=== PATIENT | female | born 1985 | race Caucasian/White ===

== ENCOUNTER 2016-07-30 03:21 | Emergency (ER) | payer MEDICARE, MEDICAID ==
[2016-07-30] MEDS ORDERED: Morphine Sulfate 2 MG/ML SYRINGE ONE (03:57)
[2016-07-30] MEDS ORDERED: Ondansetron HCl/PF 4 MG/2 ML Vial ONE ×2 (03:57→04:52)
[2016-07-30] MEDS ORDERED: diphenhydrAMINE HCl 50 MG/ML 1 ML VIAL ONE (03:58)
[2016-07-30 04:06] LABS: #Basophils 0.1 thou/uL (0.0-0.2); #Eosinphils 0.5 thou/uL (0.0-0.7); #Lymphocytes 1.5 thou/uL (1.20-3.40); #Monocytes 1.3 thou/uL (0.11-0.59); #Neutrophils 14.7 thou/uL (1.40-6.50); %Basophils 0.8 % (0.0-1.0); %Eosinophils 2.6 % (0.0-10.0); Hematocrit 32.7 % (36.0-47.0); Mean Platelet Volume 7.1 fL (7.4-10.4); Red Blood Cell (RBC) Count 3.41 mill/uL (4.20-5.40)
[2016-07-30 04:14] LABS: Bilirubin Negative (Negative); Blood, Urine Moderate (Negative); Glucose, Urine (Dipstick) 100 mg/dL (Negative); Ketone, Urine Negative (Negative); Nitrite Negative (Negative); Protein, Urine (Dipstick) > or equal to 300 mg/dL (Neg-Trace); Urobilinogen 0.2 mg/dL (0.2-1.0)
[2016-07-30 04:15] LABS: Anion Gap 28 mmol/L (10-20); BUN (Urea Nitrogen) 88 mg/dL (7.0-18.7); Bilirubin, Total 0.4 mg/dL (0.2-1.2); Calcium 8.6 mg/dL (7.8-10.44); Carbon Dioxide 16 mmol/L (22-29); Chloride 103 mmol/L (98-107)
[2016-07-30 04:18] LABS: Squamous Epithelial 0-3 HPF (0-3)
[2016-07-30 04:19] LABS: Bacteria/HPF Rare-Few HPF (None Seen); WBC/HPF None Seen HPF (0-3)
[2016-07-30 04:28] LABS: ALT (SGPT) 10 U/L (0-55); AST (SGOT) 14 U/L (5-34); Alkaline Phosphatase 256 U/L (40-150); Calc. Creatinine Clearance 0 mL/min (70-130); Estimated GFR-MDRD 4; Globulin 3.4 g/dL (2.4-3.5); Lipase 25 U/L (8-78); Protein, Total 7.6 g/dL (6.0-8.3)
[2016-07-30] MEDS ORDERED: Albuterol Sulfate 1.25 MG/3 ML NEB ONE ×2 (04:58→05:27)
[2016-07-30] MEDS ORDERED: Insulin Regular 300 UNITS/3 ML VIAL ONE (05:14)
[2016-07-30] MEDS ORDERED: Dextrose 50% Abboject 50 ML SYRINGE ONE (05:14)
[2016-07-30] MEDS ORDERED: Ampicillin/Sulbactam 1.5 GM in Sodium Chloride 0.9% 100 ML IVPB SCH (05:15)
[2016-07-30] MEDS ORDERED: Furosemide 40 MG/4 ML VIAL ONE (05:27)
[2016-07-30] MEDS ORDERED: Furosemide 100 MG/10 ML VIAL ONE (05:27)
--- NOTE | 2016-07-30 06:19 | ERRECORD ---
[facility] EMERGENCY RECORD ADMIN (03:28 KSPL) MERGE: Ambulance ThuJul 30, 2016 03:20. HPI NAUSEA/VOMITING/DIARRHEA (03:57 DHAM) CHIEF COMPLAINT: Patient presents for evaluation of nausea, Patient presents for evaluation of vomiting, dry heaves, Patient presents for evaluation of diarrhea, Number of times: 15, described as watery stools, Patient presents for evaluation of right lower quadrant pain. HISTORIAN: History provided by patient, Additional history obtained from EMS. LOCATION FEMALE: Symptoms are localized, most severe in the right lower quadrant. QUALITY: Pain is dull in nature, described as cramping. SEVERITY: Current severity of pain rated as 9/10. TIME COURSE: Sudden onset of symptoms, 3, days ago, Symptoms are worsening, increasing pain to rlq. ASSOCIATED WITH FEMALE: No associated recent antibiotic use, No associated bright red blood per rectum, No associated chills, No associated constipation, Associated with diarrhea, No associated fever, No associated groin pain, No associated loss of appetite, No associated melena, Associated with nausea, No associated night sweats, No associated trauma, No associated recent travel, No associated inability to tolerate oral intake, No associated urinary tract infection signs or symptoms, Associated with vomiting, Number of times: lots of dry heaves without true emesis, nasal congestion and runny nose and cough. EXACERBATED BY: Patient's condition exacerbated by nothing. RELIEVED BY: Patient's condition relieved by nothing. ROS (04:01 DHAM) CONSTITUTIONAL: Historian denies chills, denies fever, denies night sweats. EYES: Historian reports eye discharge, chronic right eye drainage for years. ENT: Historian reports rhinorrhea, denies sore throat. CARDIOVASCULAR: Historian denies chest pain, no radiation, Historian denies diaphoresis. RESPIRATORY: Historian reports cough, denies shortness of breath, denies sputum, denies wheezing. GI: Historian reports abdominal pain, reports anorexia, denies constipation, reports diarrhea, denies melena, reports nausea, reports vomiting. GENITOURINARY FEMALE: Historian denies dysuria, denies frequency, denies , denies urgency. missed hemodialysis Thursday. due today. MUSCULOSKELETAL: Historian denies arthralgias, denies back pain, denies fall, denies injury, denies joint redness, denies joint &a-1R&a+25V*p+0X*[id number]*c202B*c15G*c2P*p-0X&a-25V&a+1R Name: Belem Kennedy : 1985 F30 MedRec: [id number] AcctNum: [id number] Prepared: ThuJul 30, 2016 10:59 by Interface Page 1 of 5 pMD [facility] EMERGENCY RECORD stiffness, denies joint swelling. SKIN: Historian denies rash, denies skin changes, denies skin lesions. NEUROLOGIC: Historian denies confusion, denies dizziness, denies focal weakness, denies paralysis, denies paresthesias, denies sensory changes, denies vertigo. HEMO/LYMPHATIC: Historian denies abnormal blood clotting, denies easy bruising. ALLERGIC/IMMUNOLOGIC: Historian denies environmental allergies, reports frequent infections, denies hives. PSYCHIATRIC: Historian denies alcohol abuse, reports anxiety. PAST MEDICAL HISTORY MEDICAL HISTORY: Flu vaccine up to date, Tetanus not up to date, Pneumococcal vaccine not up to date, Notes: HEART MURMUR, Past medical history includes renal disease, end stage renal disease. (03:33 KSPL) FEMALE SURGICAL HISTORY: DIALYSIS FISTULA RIGHT UPPER ARM, LEFT UPPER ARM (NOT IN USE), RIGHT OVARY REMOVED, HEART SURGERY A BABY, RIGHT HIP SURGERY,. (03:33 KSPL) SOCIAL HISTORY: Patient denies alcohol use, Patient denies drug use, Patient has no smoking history. (03:33 KSPL) NOTES: I have reviewed the nursing documentation regarding PMHX, social hx, family hx, and surgical history as well as vitals and triage notes and agree. (05:39 DHAM) KNOWN ALLERGIES baclofen: Reaction: Hives, Source: Patient Claritin: Reaction: Anaphylaxis, Source: Patient Flexeril: Reaction: Hives, Severity: Moderate, Source: Patient Reglan vancoMYCIN (bulk): Reaction: Anaphylaxis, Severity: Severe, Source: Patient CURRENT MEDICATIONS (03:37 KSPL) Renvela: TABLET : Strength - 800 mg : ORAL Patient Dose: 3 times a day. VITAL SIGNS VITAL SIGNS: BP: 167/113, Pulse: 106, Resp: 22, Temp: 98.4 (Oral), O2 sat: 94 on Room Air, Time: 07/30/2016 03:23. (03:23 KSPL) BP: 165/116, Pulse: 104, Resp: 23, Pain: 9, O2 sat: 93 on Room Air, Time: 07/30/2016 03:39. (03:39 KSPL) BP: 165/108, Pulse: 104, Resp: 22 (Non-Labored), Pain: resting, O2 sat: 94 on Room Air, Time: 07/30/2016 04:15. (04:15 KSPL) Pain: 7, Time: 07/30/2016 04:42. (04:42 MVIL) BP: 175/112, Pulse: 101, Resp: 21, Pain: 8, O2 sat: 93 on Room Air, Time: 07/30/2016 04:44. (04:44 KSPL) &a-1R&a+25V*p+0X*[id number]*c202B*c15G*c2P*p-0X&a-25V&a+1R Name: Belem Kennedy : 1985 F30 MedRec: [id number] AcctNum: [id number] Prepared: ThuJul 30, 2016 10:59 by Interface Page 2 of 5 pMD [facility] EMERGENCY RECORD BP: 171/111, Pulse: 102, Resp: 20, Pain: 5, O2 sat: 93 on Room Air, Time: 07/30/2016 05:34. (05:34 KSPL) Pain: 4, Time: 07/30/2016 05:43. (05:43 MVIL) PHYSICAL EXAM (04:03 DHAM) CONSTITUTIONAL: Vital signs reviewed, Patient afebrile, Pulse, tachycardic, Blood pressure, hypertensive, Respiratory rate, increased, Patient appears non toxic, Patient appears in pain, in mild pain distress, Patient alert and oriented to person, place and time, very talkative and does not appear in pain until examined. HEAD: Head exam included findings of head atraumatic, normocephalic. EYES: Eye exam included findings of, right eyelid red, discharge from right eye looks slightly green and lid margins appear erythematous., Pupils equally round and reactive to light, Extraocular muscles intact, Conjunctiva normal, Sclera normal, Eye exam included findings of anterior chamber clear. ENT: Ear exam normal, Nose exam normal, Pharynx exam normal, Uvula exam normal, Tonsil exam normal, Mouth exam normal, mucous membranes moist, no drooling, no lesions, no lacerations, no tongue elevation. NECK: Neck exam included findings of normal range of motion, Trachea midline, no carotid bruits, no meningeal signs, no cervical adenopathy, no tenderness. RESPIRATORY CHEST: Respiratory exam included findings of no respiratory distress, Breath sounds clear, No wheezing, No rales, No rhonchi. CARDIOVASCULAR: Cardiovascular exam included findings of heart rate regular rate and rhythm, Heart sounds with, systolic murmur present, grade 2/6, right upper arm av dialysis shunt. ABDOMEN FEMALE: Abdominal exam included findings of abdomen tender, to the right lower quadrant, severe intensity, Bowel sounds, hyperactive, Liver normal, Spleen normal, no distension, no pulsatile masses, Peritoneal signs present, no rigidity, guarding present, no rebound, guarding in the right lower quad only. abdomen is really quite soft otherwise. GENITOURINARY FEMALE: External genitalia normal. BACK: Back exam included findings of normal inspection, range of motion normal, no tenderness. UPPER EXTREMITY: Upper extremity exam normal. LOWER EXTREMITY: Lower extremity exam normal. NEURO: Cruger coma scale 15, Neuro exam findings include patient oriented to person, place and time, Speech normal, Gait normal, Memory normal, Cranial nerves intact, no focal motor deficits, no focal sensory deficits. SKIN: Skin exam included findings of skin warm, dry, and normal &a-1R&a+25V*p+0X*[id number]*c202B*c15G*c2P*p-0X&a-25V&a+1R Name: Belem Kennedy : 1985 F30 MedRec: [id number] AcctNum: [id number] Prepared: ThuJul 30, 2016 10:59 by Interface Page 3 of 5 pMD [facility] EMERGENCY RECORD in color, no rash. LYMPHATIC: Lymphatic exam normal. PSYCHIATRIC: Psychiatric exam included findings of patient oriented to person place and time, speech is high pitched and pressured. EKG INTERPRETATION (04:09 [facility]) 12 LEAD EKG INTERPRETATION: 12 lead EKG interpreted by Emergency Department Physician at time of study, 12 lead EKG shows, sinus tachycardia, Rate (beats per minute): 106, with no ectopics, Compared with previous EKG from, 11/26/2015 04:11, Similar to old EKG, Conduction normal, ST segments normal, T waves normal, [place], right. RADIOLOGYINTERPRETATION (05:32 DHAM) CHEST: Films of the chest show, interstitial infiltrate, no pneumothorax, no hemothorax, no pleural effusion, moderate congestive heart failure, Other findings: moderate interstitial pulm edema with cuffing, cephalization and gustvao B lines. MEDICATION ADMINISTRATION SUMMARY Drug Name: Unasyn injection, Dose Ordered: 1.5 g, Route: IV Piggy Back, Status: Given, Time: 05:41 07/30/2016, Drug Name: Lasix injection, Dose Ordered: 120 mg, Route: IV Push, Status: Given, Time: 05:41 07/30/2016, Drug Name: *albuterol sulfate inhalation, Dose Ordered: 3 vial(s), Route: Nebulize, Status: Given, Time: 05:30 07/30/2016, Drug Name: dextrose 50 % in water (D50W), Dose Ordered: 50 mL, Route: IV Push, Status: Given, Time: 05:25 07/30/2016, Drug Name: *NovoLIN R, Dose Ordered: 10 units, Route: IV Push, Status: Given, Time: 05:24 07/30/2016, Drug Name: morphine injection, Dose Ordered: 3 mg, Route: IV Push, Status: Given, Time: 05:12 07/30/2016, Drug Name: albuterol sulfate inhalation, Dose Ordered: 1 vial(s), Route: Nebulize, Status: Given, Time: 04:58 07/30/2016, Drug Name: Kayexalate, Dose Ordered: 30 g, Route: Oral, Status: Given, Time: 04:56 07/30/2016, Drug Name: *Benadryl injection, Dose Ordered: 12.5 mg, Route: IV Push, Status: Given, Time: 04:11 07/30/2016, Drug Name: Zofran intravenous, Dose Ordered: 4 mg, Route: IV Push, Status: Given, Time: 04:06 07/30/2016, Drug Name: morphine injection, Dose Ordered: 6 mg, Route: IV Push, Status: Given, Time: 04:06 07/30/2016, *Additional information available in notes, Detailed record available in Medication Service section. DOCTOR NOTES TEXT: pain much improved p 6mg morphine IV as of 0414. &a-1R&a+25V*p+0X*y1004U*c202B*c15G*c2P*p-0X&a-25V&a+1R Name: Belem Kennedy : 1985 F30 MedRec: [id number] AcctNum: [id number] Prepared: ThuJul 30, 2016 10:59 by Interface Page 4 of 5 pMD [facility] EMERGENCY RECORD (04:13 DHAM) Pts K+ is 6.9 and her wbc is 18K. Her EKG does not demonstrate changes of hyperkalemia. Her ct abd is pending at this time. Her cxr is consistent with interstitial pulm edema but lung exam without crackles. We have started albuterol 10mg via neb. Pt was discussed with and accepted by Dr. Peguero at [facility] at 0457. She does appear stable for transfer as she will need dialysis this morning. I have encouraged her not to miss dialysis. I have obtained BC x 2 sets and started Unasyn due to the leukocytosis. (05:12 DHAM) PROBLEM LIST No recorded problems DIAGNOSIS (05:32 DHAM) FINAL: PRIMARY: Hyperkalemia, ADDITIONAL: FLUID OVERLOAD UNSPECIFIED, leukocytosis, RIGHT LOWER QUADRANT PAIN. PRESCRIPTION No recorded prescriptions DISPOSITION PATIENT: Disposition Type: Transfer, Disposition: Transfer to [facility]. (05:32 DHAM) Patient left the department. (06:13 KSPL) Fang: ISAAC=MD Steph, Gualberto KSPL=EDEN Velazquez, Marley MVIL=EDEN Brumfield, Alivia &a-1R&a+25V*p+0X*k3043H*c202B*c15G*c2P*p-0X&a-25V&a+1R Name: Belem Kennedy : 1985 F30 MedRec: [id number] AcctNum: [id number] Prepared: ThuJul 30, 2016 10:59 by Interface Page 5 of 5 pMD MTDD
--- NOTE | 2016-07-30 06:23 | PICIS ---
[facility] EMERGENCY RECORD ADMIN MERGE: Ambulance ThuJul 30, 2016 03:20. (03:28 KSPL) TRIAGE (03:27 KSPL) TRIAGE NOTES: RLQ pain, diarrhea x days, dry heaving. (03:27 KSPL) PATIENT: NAME: Belem Kennedy, AGE: 30, GENDER: female, : Thu1985, TIME OF GREET: ThuJul 30, 2016 03:21, PREFERRED LANGUAGE: [place], ETHNICITY: Not or , ECODE BILLING MAP: [facility], SSN: [id number], Zip Code: [address], KG WEIGHT: 56.70, PHONE: , , , PERSON ID: [id number], PAYMENT: [facility] Medicare, PCP: MD Snowden Kyle. (03:27 KSPL) COMPLAINT: RLQ pain. (03:27 KSPL) ADMISSION: URGENCY: 3 Urgent, ADMISSION SOURCE: Home, TRANSPORT: AMBULANCE - [facility], BED: TRIAGE. (03:27 KSPL) PAIN: Patient complains of pain described as, Location RLQ radiating to LLQ, Pain is constant, Onset was 07/29/2016 0700. (03:33 KSPL) SIRS SCORING: Heart Rate 55-109 (0), Temp range 96.8-101.1 (0), respiratory rate 12-24 (0), Mental Status altered: no (0). (03:33 KSPL) IMMUNIZATIONS: Flu vaccine up to date, Tetanus not up to date, Pneumococcal vaccine not up to date, Notes: Pain started yesterday morning and has increased in severity. (03:33 KSPL) TRIAGE SCREENING: Patient denies suicidal ideation, Patient denies presence of domestic violence. (03:33 KSPL) LMP: Last menstrual period: 06/12/2017. (03:33 KSPL) TREATMENTS IN PROGRESS: Treatments given Prehospital: motrin about 0300. (03:33 KSPL) PROVIDERS: TRIAGE NURSE: Marley Velazquez RN. (03:27 KSPL) VITAL SIGNS: BP 167/113, Pulse 106, Resp 22, Temp 98.4, (Oral), O2 Sat 94, on Room Air, Time 07/30/2016 03:23. (03:23 KSPL) PREVIOUS VISIT ALLERGIES: baclofen, Claritin, Flexeril, Reglan, vancoMYCIN (bulk). (03:27 KSPL) baclofen, Claritin, Flexeril, Reglan, vancoMYCIN (bulk). (03:33 KSPL) KNOWN ALLERGIES baclofen: Reaction: Hives, Source: Patient Claritin: Reaction: Anaphylaxis, Source: Patient Flexeril: Reaction: Hives, Severity: Moderate, Source: Patient Reglan vancoMYCIN (bulk): Reaction: Anaphylaxis, Severity: Severe, Source: Patient CURRENT MEDICATIONS (03:37 KSPL) Renvela: TABLET : Strength - 800 mg : ORAL Patient Dose: 3 times a day. &a-1R&a+25V*p+0X*q7026A*c202B*c15G*c2P*p-0X&a-25V&a+1R Name: Belem Kennedy : 1985 F30 MedRec: [id number] AcctNum: [id number] Prepared: ThuJul 30, 2016 11:04 by Interface Page [address] [facility] EMERGENCY RECORD VITAL SIGNS VITAL SIGNS: BP: 167/113, Pulse: 106, Resp: 22, Temp: 98.4 (Oral), O2 sat: 94 on Room Air, Time: 07/30/2016 03:23. (03:23 KSPL) BP: 165/116, Pulse: 104, Resp: 23, Pain: 9, O2 sat: 93 on Room Air, Time: 07/30/2016 03:39. (03:39 KSPL) BP: 165/108, Pulse: 104, Resp: 22 (Non-Labored), Pain: resting, O2 sat: 94 on Room Air, Time: 07/30/2016 04:15. (04:15 KSPL) Pain: 7, Time: 07/30/2016 04:42. (04:42 MVIL) BP: 175/112, Pulse: 101, Resp: 21, Pain: 8, O2 sat: 93 on Room Air, Time: 07/30/2016 04:44. (04:44 KSPL) BP: 171/111, Pulse: 102, Resp: 20, Pain: 5, O2 sat: 93 on Room Air, Time: 07/30/2016 05:34. (05:34 KSPL) Pain: 4, Time: 07/30/2016 05:43. (05:43 MVIL) NURSING ASSESSMENT: ABDOMEN (03:34 KSPL) CONSTITUTIONAL: Complex assessment performed, Patient arrives, via stretcher, via Emergency Medical Services, Unsteady gait, pt scooted to cart on her own, History obtained from patient, Patient appears, in distress due to pain, uncomfortable, Patient cooperative, Patient alert, Oriented to person, place and time, Skin warm, Skin dry, Skin normal in color, Mucous membranes pink, Mucous membranes moist, Patient is well-groomed, Patient complains of Abd pain. ABDOMEN: Abdomen assessment findings include abdomen symmetrical, no discolorations, Abdomen soft, tender, to the left upper quadrant, to the left lower quadrant, to the right upper quadrant, to the right lower quadrant, Bowel sound normal, Associated with nausea, Associated with diarrhea, Number of episodes: approx 8 per pt. SAFETY: Side rails up, Cart/Stretcher in lowest position, Call light within reach, Hospital ID band on, Patient in view of the nursing station. NURSING ASSESSMENT: FALL RISK (05:22 KSPL) FALL RISK: Change in blood pressure (1), Total score 1, No risk for fall, Notes: pt up ad fernanda at home. NURSING ASSESSMENT: SKIN (05:23 KSPL) SKIN: Skin assessment findings include skin warm, Skin dry, Skin normal in color, Inspection findings include: No pressure ulcer to the shoulder, Inspection findings include no pressure ulcer to the elbow, Inspection findings include no pressure ulcers to the hip, Inspection findings include no pressure ulcer to the sacrum, Inspection findings include no pressure ulcer to the heel, Inspection findings include no pressure ulcer, Inspection findings include no pressure ulcer, Notes: healing scratches to bilat legs and arms, josué able redness to sacrum. SAFETY: Side rails up, Cart/Stretcher in lowest position, Call light within reach, Hospital ID band on, Patient in view of the &a-1R&a+25V*p+0X*z2564N*c202B*c15G*c2P*p-0X&a-25V&a+1R Name: Belem Kennedy Corey : 1985 F30 MedRec: [id number] AcctNum: [id number] Prepared: ThuJul 30, 2016 11:04 by Interface Page [address] [facility] EMERGENCY RECORD nursing station. NURSING PROCEDURE: BEDSIDE SIRS TESTING (06:00 KSPL) SCORES: Heart Rate 55-109 (0), Temp range 96.8-101.1 (0), respiratory rate 12-24 (0), Latest WBC 15-19.9 (1), Mental Status altered: no (0), Total SIRS Score 1, Yes, Infection or Suspected Infection. NURSING PROCEDURE: PEDIATRIC DENTAL ASSISTANT (03:27 KSPL) PATIENT IDENTIFIER: Patient actively involved in identification process, Patient's identity verified by patient stating name, Patient's identity verified by patient stating date. PEDIATRIC DENTAL ASSISTANT: Cardiac monitoring indicated for facilitate dx, Patient placed on alarm security or surveillance monitor, Heart rate: 105, showing sinus tachycardia, Patient placed on non-invasive blood pressure monitor, with disposable blood pressure cuff applied, Patient placed on continuous pulse oximetry, Adult/pediatric oxisensor applied, Oxygen saturation 94%. SAFETY: Side rails up, Cart/Stretcher in lowest position, Call light within reach, Hospital ID band on, Patient in view of the nursing station. NURSING PROCEDURE: EKG CHART (04:01 KSPL) PATIENT IDENTIFIER: Patient actively involved in identification process, Patient's identity verified by patient stating name, Patient's identity verified by patient stating date. EKG: EKG indicated for facilitate dx, 12 lead EKG performed on the left chest, done by Krystian, first EKG. FOLLOW-UP: After procedure, EKG for interpretation given to Dr. Choi. SAFETY: Side rails up, Cart/Stretcher in lowest position, Call light within reach, Hospital ID band on, Patient in view of the nursing station. NURSING PROCEDURE: IV PATIENT IDENITIFIER: Patient actively involved in identification process, Patient's identity verified by patient stating name, Patient's identity verified by patient stating date. (03:45 KSPL) Patient actively involved in identification process, Patient's identity verified by patient stating name, Patient's identity verified by hospital ID bracelet. (04:13 MVIL) IV SITE 1: IV therapy indicated for hydration, IV therapy indicated for medication administration, IV established, to the left antecubital, using a 20 gauge catheter, in two attempts, IV site prepped with chloroprep, Flushed with normal saline (mls): 10 mls, Labs drawn at time of placement, labeled in the presence of the patient and sent to lab. (03:45 KSPL) IV therapy indicated for medication administration, IV established, to the left antecubital, Saline lock established, Flushed with normal &a-1R&a+25V*p+0X*g7176C*c202B*c15G*c2P*p-0X&a-25V&a+1R Name: Belem Kennedy : 1985 F30 MedRec: [id number] AcctNum: [id number] Prepared: ThuJul 30, 2016 11:04 by Interface Page [address] [facility] EMERGENCY RECORD saline (mls): 10, Labs drawn at time of placement, labeled in the presence of the patient and sent to lab. (04:13 MVIL) FOLLOW-UP SITE 1: After procedure, 2x3 ensure dressing applied, After procedure, IV line connections checked and properly labeled, After procedure, no drainage at IV site, After procedure, no swelling at IV site, After procedure, no redness at IV site. (04:13 MVIL) SAFETY: Side rails up, Cart/Stretcher in lowest position, Call light within reach, Hospital ID band on, Patient in view of the nursing station. (03:45 KSPL) NURSING PROCEDURE: NURSE NOTES (03:43 KSPL) NURSES NOTES: Notes: redness and discharge noted to pt R eye, pt states "its been that way for a long time". ERMD at bedside. NURSING PROCEDURE: RESPIRATORY INTERVENTIONS (05:30 KSPL) PATIENT IDENTIFIER: Patient actively involved in identification process, Patient's identity verified by patient stating name, Patient's identity verified by patient stating date. RESPIRATORY INTERVENTIONS: Patient given ALBUTEROL, 2, Continuous nebulizer, Dose: 7.5MG. SAFETY: Side rails up, Cart/Stretcher in lowest position, Call light within reach, Hospital ID band on, Patient in view of the nursing station. NURSING PROCEDURE: TRANSFER TRANSFER: Reason for transfer need for specialized care, Diagnosis: RLQ pain, Hyperkalemia, Leukocytosis, Accepting institution: [facility], Accepting physician: KYLE, Referring physician: STEPH, Transported by urgent ambulance, accompanied by emergency medical services personnel, Summary of Care printed, Copy of patient record prepared for receiving facility, Copy of diagnostic studies, Status of patient's valuables documented on chart, Medication reconciliation form prepared and sent to receiving facility, Patient consent for transfer signed, Family member contacted, PT STATES NOTIFIED MOTHER. (05:50 KSPL) Report called to receiving facility, YAHAIRA, Provided opportunity to answer questions. (06:08 KSPL) BELONGINGS: Belongings remain with patient, Valuables remain with patient. (05:50 KSPL) EQUIPMENT WITH PATIENT: Equipment with patient at time of transfer alarm security or surveillance monitor, Equipment with patient at time of transfer IV pump, Saline lock intact and patent at time of transfer, Equipment with patient at time of transfer CONT NEB. (05:50 KSPL) SAFETY: Side rails up, Cart/Stretcher in lowest position, Call light within reach, Hospital ID band on, Patient in view of the nursing station. (05:50 KSPL) NURSING PROCEDURE: TRANSPORT TO TESTS PATIENT IDENTIFIER: Patient actively involved in identification &a-1R&a+25V*p+0X*e6367Y*c202B*c15G*c2P*p-0X&a-25V&a+1R Name: Belem Kennedy : 1985 F30 MedRec: [id number] AcctNum: [id number] Prepared: ThuJul 30, 2016 11:04 by Interface Page [address] [facility] EMERGENCY RECORD process, Patient's identity verified by patient stating name, Patient's identity verified by hospital ID bracelet. (04:24 MVIL) TRANSPORT TO TESTS: Transport indicated to facilitate diagnosis, Patient transported to CT scan, via cart, Accompanied by x-ray medical records field technician. (04:24 MVIL) FOLLOW-UP: After procedure, patient returned to emergency department. (04:42 MVIL) NURSING PROCEDURE: URINE COLLECTION (04:06 KSPL) PATIENT IDENTIFIER: Patient actively involved in identification process, Patient's identity verified by patient stating name, Patient's identity verified by patient stating date. URINE COLLECTION FEMALE: Urine collection indicated for facilitate dx, Urine collected by straight cath, using an 8fr catheter kit, in one attempt, output amount (mL) 8 mls, urine yellow in color, and clear, Specimen collected, labeled in the presence of the patient and sent to lab. SAFETY: Side rails up, Cart/Stretcher in lowest position, Call light within reach, Hospital ID band on, Patient in view of the nursing station. ORDER DETAILS Order Name: PEDIATRIC DENTAL ASSISTANT ED, Status: Done, Time: 03:48 07/30/2016, User: CATRACHO, - Ordered for: MD Choi Darren, - Entered by: MD Choi Darren - ThuJul 30, 2016 03:47, - Quantity: 1, Order Name: CATH STRAIGHT ED, Status: Done, Time: 03:55 07/30/2016, User: APRIL, - Ordered for: MD Choi Darren, - Entered by: MD Choi Darren - ThuJul 30, 2016 03:47, - Quantity: 1, Order Name: CBC with Differential, Status: Active, Time: 03:47 07/30/2016, User: ISAAC, - Ordered for: MD Choi Darren, - Entered by: MD Choi Darren - ThuJul 30, 2016 03:47, - Quantity: 1, Order Name: Comprehensive Metabolic Panel, Status: Active, Time: 03:47 07/30/2016, User: ISAAC, - Ordered for: MD Choi Darren, - Entered by: MD Choi Darren - ThuJul 30, 2016 03:47, - Quantity: 1, Order Name: CT Abdomen Pelvis W Con, Status: Active, Time: 03:50 07/30/2016, User: ISAAC, - Ordered for: MD Choi Darren, - Entered by: MD Choi Darren - ThuJul 30, 2016 03:50, - Quantity: 1, Order Name: Culture, Blood, Status: Active, Time: 04:58 07/30/2016, User: ISAAC, &a-1R&a+25V*p+0X*d4517V*c202B*c15G*c2P*p-0X&a-25V&a+1R Name: Belem Kennedy : 1985 F30 MedRec: [id number] AcctNum: [id number] Prepared: ThuJul 30, 2016 11:04 by Interface Page [address] [facility] EMERGENCY RECORD - Ordered for: MD Choi Darren, - Entered by: MD Choi Darren - ThuJul 30, 2016 04:58, - Quantity: 1, Order Name: EKG 12 Lead in Emergency Room, Status: Active, Time: 03:47 07/30/2016, User: ISAAC, - Ordered for: MD Choi Darren, - Entered by: MD Choi Darren - ThuJul 30, 2016 03:47, - Quantity: 1, Order Name: ERRT Con Breathing Trmt 1st Hr, Status: Active, Time: 05:25 07/30/2016, User: ISAAC, - Ordered for: MD Choi Darren, - Entered by: MD Choi Darren - ThuJul 30, 2016 05:25, - Quantity: 1, Order Name: ERRT Pulse Oximeter ER, Status: Active, Time: 03:47 07/30/2016, User: ISAAC, - Ordered for: MD Choi Darren, - Entered by: MD Choi Darren - ThuJul 30, 2016 03:47, - Quantity: 1, Order Name: Influenza A&B Ag Screen, Status: Active, Time: 04:01 07/30/2016, User: ISAAC, - Ordered for: MD Choi Darren, - Entered by: MD Choi Darren - ThuJul 30, 2016 04:01, - Quantity: 1, Order Name: Lipase, Status: Active, Time: 03:47 07/30/2016, User: ISAAC, - Ordered for: MD Choi Darren, - Entered by: MD Choi Darren - ThuJul 30, 2016 03:47, - Quantity: 1, Order Name: Test, Serum (BHCG), Status: Active, Time: 03:47 07/30/2016, User: ISAAC, - Ordered for: MD Choi Darren, - Entered by: MD Choi Darren - ThuJul 30, 2016 03:47, - Quantity: 1, Order Name: SALINE LOCK, Status: Done, Time: 03:48 07/30/2016, User: KSPL, - Ordered for: MD Choi Darren, - Entered by: MD Choi Darren - ThuJul 30, 2016 03:47, - Quantity: 1, Order Name: Urinalysis w/ Rflx Microscopic, Status: Active, Time: 03:47 07/30/2016, User: ISAAC, - Ordered for: MD Choi Darren, - Entered by: MD Choi Darren - ThuJul 30, 2016 03:47, - Quantity: 1, Order Name: XR Chest 1 View Portable, Status: Active, Time: 03:53 07/30/2016, User: ISAAC, - Ordered for: MD Choi Darren, - Entered by: MD Choi Darren - ThuJul 30, 2016 03:53, - Quantity: 1. MEDICATION ADMINISTRATION SUMMARY &a-1R&a+25V*p+0X*n2801R*c202B*c15G*c2P*p-0X&a-25V&a+1R Name: BrentBelem Corey : 1985 F30 MedRec: [id number] AcctNum: [id number] Prepared: ThuJul 30, 2016 11:04 by Interface Page [address] [facility] EMERGENCY RECORD Drug Name: Unasyn injection, Dose Ordered: 1.5 g, Route: IV Piggy Back, Status: Given, Time: 05:41 07/30/2016, Drug Name: Lasix injection, Dose Ordered: 120 mg, Route: IV Push, Status: Given, Time: 05:41 07/30/2016, Drug Name: *albuterol sulfate inhalation, Dose Ordered: 3 vial(s), Route: Nebulize, Status: Given, Time: 05:30 07/30/2016, Drug Name: dextrose 50 % in water (D50W), Dose Ordered: 50 mL, Route: IV Push, Status: Given, Time: 05:25 07/30/2016, Drug Name: *NovoLIN R, Dose Ordered: 10 units, Route: IV Push, Status: Given, Time: 05:24 07/30/2016, Drug Name: morphine injection, Dose Ordered: 3 mg, Route: IV Push, Status: Given, Time: 05:12 07/30/2016, Drug Name: albuterol sulfate inhalation, Dose Ordered: 1 vial(s), Route: Nebulize, Status: Given, Time: 04:58 07/30/2016, Drug Name: Kayexalate, Dose Ordered: 30 g, Route: Oral, Status: Given, Time: 04:56 07/30/2016, Drug Name: *Benadryl injection, Dose Ordered: 12.5 mg, Route: IV Push, Status: Given, Time: 04:11 07/30/2016, Drug Name: Zofran intravenous, Dose Ordered: 4 mg, Route: IV Push, Status: Given, Time: 04:06 07/30/2016, Drug Name: morphine injection, Dose Ordered: 6 mg, Route: IV Push, Status: Given, Time: 04:06 07/30/2016, *Additional information available in notes, Detailed record available in Medication Service section. MEDICATION SERVICE albuterol sulfate inhalation: Order: albuterol sulfate inhalation (albuterol sulfate) - Dose: 1 vial(s) : Nebulize Schedule: Now Ordered by: Gualberto Choi MD Entered by: Gualberto Choi MD ThuJul 30, 2016 04:52 Documented as given by: Alivia Brumfield RN ThuJul 30, 2016 04:58 Patient, Medication, Dose, Route and Time verified prior to administration. Amount given: 3ML, Correct patient, time, route, dose and medication confirmed prior to administration, Patient advised of actions and side-effects prior to administration, Allergies confirmed and medications reviewed prior to administration, Patient in position of comfort, Side rails up, Cart in lowest position. albuterol sulfate inhalation: Order: albuterol sulfate inhalation (albuterol sulfate) - Dose: 3 vial(s) : Nebulize Schedule: Now Notes: for total of 10mg Ordered by: Gualberto Choi MD Entered by: Gualberto Choi MD ThuJul 30, 2016 05:24 Documented as given by: Alivia Brumfield RN ThuJul 30, 2016 05:30 Patient, Medication, Dose, Route and Time verified prior to &a-1R&a+25V*p+0X*v4577R*c202B*c15G*c2P*p-0X&a-25V&a+1R Name: Belem Kennedy : 1985 F30 MedRec: [id number] AcctNum: [id number] Prepared: ThuJul 30, 2016 11:04 by Interface Page [address] [facility] EMERGENCY RECORD administration. Amount given: 3 vials, Correct patient, time, route, dose and medication confirmed prior to administration, Patient advised of actions and side-effects prior to administration, Allergies confirmed and medications reviewed prior to administration. Benadryl injection: Order: Benadryl injection (diphenhydramine HCl) - Dose: 12.5 mg : IV Push POTENTIAL ALLERGY REACTION: 'Claritin [loratadine]' - Not a true drug allergy Schedule: Now Notes: tolerates benedryl recently in the past Ordered by: Gualberto Choi MD Entered by: Gualberto Choi MD ThuJul 30, 2016 03:55 Documented as given by: Alivia Brumfield RN ThuJul 30, 2016 04:11 Patient, Medication, Dose, Route and Time verified prior to administration. Amount given: 12.5MG, IV SITE #1 IVP, initial medication, Catheter placement confirmed via flush prior to administration, IV site without signs or symptoms of infiltration during medication administration, No swelling during administration, No drainage during administration, IV flushed after administration, Correct patient, time, route, dose and medication confirmed prior to administration, Patient advised of actions and side-effects prior to administration, Allergies confirmed and medications reviewed prior to administration, Patient in position of comfort, Side rails up, Cart in lowest position, Family at bedside. : Follow Up : Response assessment performed, No signs or symptoms of allergic reaction noted, _IV SITE #1:_, Advised not to ambulate without assistance, Patient in position of comfort, Side rails up, Cart in lowest position. (04:44 MVIL) dextrose 50 % in water (D50W): Order: dextrose 50 % in water (D50W) (dextrose 50 % in water) - Dose: 50 mL : IV Push Schedule: Now Ordered by: Gualberto Choi MD Entered by: Gualberto Choi MD ThuJul 30, 2016 05:00 Documented as given by: Alivia Brumfield RN ThuJul 30, 2016 05:25 Patient, Medication, Dose, Route and Time verified prior to administration. Amount given: 50ml, IV SITE #1 IVP, initial medication, Catheter placement confirmed via flush prior to administration, IV site without signs or symptoms of infiltration during medication administration, No swelling during administration, No drainage during administration, IV flushed after administration, Correct patient, time, route, dose and medication confirmed prior to administration, Patient advised of actions and side-effects prior to administration, Allergies confirmed and medications reviewed prior to administration. Kayexalate: Order: Kayexalate (sodium polystyrene sulfonate) - Dose: 30 g : Oral &a-1R&a+25V*p+0X*c5076C*c202B*c15G*c2P*p-0X&a-25V&a+1R Name: Belem Kennedy : 1985 F30 MedRec: [id number] AcctNum: [id number] Prepared: ThuJul 30, 2016 11:04 by Interface Page [address] [facility] EMERGENCY RECORD Schedule: Now Ordered by: Gualberto Choi MD Entered by: Gualberto Choi MD ThuJul 30, 2016 04:49 Documented as given by: Alivia Brumfield RN ThuJul 30, 2016 04:56 Patient, Medication, Dose, Route and Time verified prior to administration. Amount given: 30G, Correct patient, time, route, dose and medication confirmed prior to administration, Patient advised of actions and side-effects prior to administration, Allergies confirmed and medications reviewed prior to administration, Patient in position of comfort, Side rails up, Cart in lowest position. Lasix injection: Order: Lasix injection (furosemide) - Dose: 120 mg : IV Push Schedule: Now Ordered by: Gualberto Choi MD Entered by: Gualberto Choi MD ThuJul 30, 2016 05:26 Documented as given by: Alivia Brumfield RN ThuJul 30, 2016 05:41 Patient, Medication, Dose, Route and Time verified prior to administration. Amount given: 120mg, IV SITE #1 IVP, initial medication, Slowly, Catheter placement confirmed via flush prior to administration, IV site without signs or symptoms of infiltration during medication administration, No swelling during administration, No drainage during administration, IV flushed after administration, Correct patient, time, route, dose and medication confirmed prior to administration, Patient advised of actions and side-effects prior to administration, Allergies confirmed and medications reviewed prior to administration. morphine injection: Order: morphine injection (morphine sulfate) - Dose: 6 mg : IV Push Schedule: Now Ordered by: Gualberto Choi MD Entered by: Gualberto Choi MD ThuJul 30, 2016 03:57 Documented as given by: Alivia Brumfield RN ThuJul 30, 2016 04:06 Patient, Medication, Dose, Route and Time verified prior to administration. Amount given: 6MG, IV SITE #1 IVP, initial medication, Slowly, Catheter placement confirmed via flush prior to administration, IV site without signs or symptoms of infiltration during medication administration, No swelling during administration, No drainage during administration, IV flushed after administration, Correct patient, time, route, dose and medication confirmed prior to administration, Patient advised of actions and side-effects prior to administration, Allergies confirmed and medications reviewed prior to administration, Patient in position of comfort, Side rails up, Cart in lowest position, Family at bedside. morphine injection: Response assessment performed, No signs or symptoms of allergic reaction noted, Decreased pain, _IV &a-1R&a+25V*p+0X*a2701N*c202B*c15G*c2P*p-0X&a-25V&a+1R Name: Beelm Kennedy : 1985 F30 MedRec: [id number] AcctNum: [id number] Prepared: ThuJul 30, 2016 11:04 by Interface Page [address] [facility] EMERGENCY RECORD SITE #1:_, Advised not to ambulate without assistance, Patient in position of comfort, Side rails up, Cart in lowest position, Call light in reach, Pain: 7. (04:42 MVIL) morphine injection: Order: morphine injection (morphine sulfate) - Dose: 3 mg : IV Push Schedule: Now Ordered by: Gualberto Choi MD Entered by: Gualberto Choi MD ThuJul 30, 2016 04:58 Documented as given by: Alivia Brumfield RN ThuJul 30, 2016 05:12 Patient, Medication, Dose, Route and Time verified prior to administration. Amount given: 3mg, Amount wasted: 1mg, IV SITE #1 IVP, initial medication, Slowly, Catheter placement confirmed via flush prior to administration, IV site without signs or symptoms of infiltration during medication administration, No swelling during administration, No drainage during administration, IV flushed after administration, Correct patient, time, route, dose and medication confirmed prior to administration, Patient advised of actions and side-effects prior to administration, Allergies confirmed and medications reviewed prior to administration, Patient in position of comfort, Side rails up, Cart in lowest position. morphine injection: Response assessment performed, No signs or symptoms of allergic reaction noted, Decreased pain, _IV SITE #1:_, Pain: 4. (05:43 MVIL) NovoLIN R: Order: NovoLIN R (insulin regular, human) - Dose: 10 units : IV Push Schedule: Now Notes: slowly over 15 minutes Ordered by: Gualberto Choi MD Entered by: Gualberto Choi MD ThuJul 30, 2016 05:07 , Co-signed by: Ani Galdamez RN ThuJul 30, 2016 05:21 Documented as given by: Alivia Brumfield RN ThuJul 30, 2016 05:24 Patient, Medication, Dose, Route and Time verified prior to administration. Amount given: 10units, IV SITE #1 IVPB or drip, initial infusion, Catheter placement confirmed via flush prior to administration, IV site without signs or symptoms of infiltration during medication administration, No swelling during administration, No drainage during administration, IV flushed after administration, Correct patient, time, route, dose and medication confirmed prior to administration, Patient advised of actions and side-effects prior to administration, Allergies confirmed and medications reviewed prior to administration. Unasyn injection: Order: Unasyn injection (ampicillin sodium/sulbactam sodium) - Dose: 1.5 g : IV Piggy Back Schedule: Now Ordered by: Gualberto Choi MD Entered by: Gualberto Choi MD ThuJul 30, 2016 04:50 , Acknowledged by: Ani Galdamez RN ThuJul 30, 2016 05:21 &a-1R&a+25V*p+0X*q1286F*c202B*c15G*c2P*p-0X&a-25V&a+1R Name: Belem Kennedy : 1985 F30 MedRec: [id number] AcctNum: [id number] Prepared: ThuJul 30, 2016 11:04 by Interface Page [address] [facility] EMERGENCY RECORD Documented as given by: Marley Velzaquez RN ThuJul 30, 2016 05:41 Patient, Medication, Dose, Route and Time verified prior to administration. Amount given: 1.5 g, IV SITE #1 IVPB or drip, subsequent infusion, IVPB mixed in: 100ml, Fluid: 0.9NS, via pump tubing, on an IV pump, at 100 ml/hr, Verified Blood Culture collection prior to Antibiotic administration, Connections checked prior to administration, Line traced prior to administration, Catheter placement confirmed via flush prior to administration, IV site without signs or symptoms of infiltration during medication administration, No swelling during administration, No drainage during administration, IV flushed after administration, Correct patient, time, route, dose and medication confirmed prior to administration, Patient advised of actions and side-effects prior to administration, Allergies confirmed and medications reviewed prior to administration, Administered by Ani HARMON, Patient in position of comfort, Side rails up, Cart in lowest position, Call light in reach, dosage available only in 3g, mixed 3g in 100mls NS, infusing 50ml to equal 1.5g. pharmacist Zenaida and Dr Choi aware,. Zofran intravenous: Order: Zofran intravenous (ondansetron HCl) - Dose: 4 mg : IV Push Schedule: Now Ordered by: Gualberto Choi MD Entered by: Gualberto Choi MD ThuJul 30, 2016 03:55 Documented as given by: Alivia Brumfield RN ThuJul 30, 2016 04:06 Patient, Medication, Dose, Route and Time verified prior to administration. Amount given: 4MG, IV SITE #1 IVP, initial medication, Catheter placement confirmed via flush prior to administration, IV site without signs or symptoms of infiltration during medication administration, No swelling during administration, No drainage during administration, IV flushed after administration, Correct patient, time, route, dose and medication confirmed prior to administration, Patient advised of actions and side-effects prior to administration, Allergies confirmed and medications reviewed prior to administration. : Follow Up : Response assessment performed, No signs or symptoms of allergic reaction noted, No change in nausea, _IV SITE #1:_, PATIENT REMAINS NAUSEOUS. AWARE. (04:43 MVIL) HPI NAUSEA/VOMITING/DIARRHEA (03:57 DHAM) CHIEF COMPLAINT: Patient presents for evaluation of nausea, Patient presents for evaluation of vomiting, dry heaves, Patient presents for evaluation of diarrhea, Number of times: 15, described as watery stools, Patient presents for evaluation of right lower quadrant pain. HISTORIAN: History provided by patient, Additional history obtained from EMS. LOCATION FEMALE: Symptoms are localized, most severe in the right lower quadrant. QUALITY: &a-1R&a+25V*p+0X*v1322U*c202B*c15G*c2P*p-0X&a-25V&a+1R Name: Belem Kennedy : 1985 F30 MedRec: [id number] AcctNum: [id number] Prepared: ThuJul 30, 2016 11:04 by Interface Page [address] [facility] EMERGENCY RECORD Pain is dull in nature, described as cramping. SEVERITY: Current severity of pain rated as 9/10. TIME COURSE: Sudden onset of symptoms, 3, days ago, Symptoms are worsening, increasing pain to rlq. ASSOCIATED WITH FEMALE: No associated recent antibiotic use, No associated bright red blood per rectum, No associated chills, No associated constipation, Associated with diarrhea, No associated fever, No associated groin pain, No associated loss of appetite, No associated melena, Associated with nausea, No associated night sweats, No associated trauma, No associated recent travel, No associated inability to tolerate oral intake, No associated urinary tract infection signs or symptoms, Associated with vomiting, Number of times: lots of dry heaves without true emesis, nasal congestion and runny nose and cough. EXACERBATED BY: Patient's condition exacerbated by nothing. RELIEVED BY: Patient's condition relieved by nothing. ROS (04:01 DHA) CONSTITUTIONAL: Historian denies chills, denies fever, denies night sweats. EYES: Historian reports eye discharge, chronic right eye drainage for years. ENT: Historian reports rhinorrhea, denies sore throat. CARDIOVASCULAR: Historian denies chest pain, no radiation, Historian denies diaphoresis. RESPIRATORY: Historian reports cough, denies shortness of breath, denies sputum, denies wheezing. GI: Historian reports abdominal pain, reports anorexia, denies constipation, reports diarrhea, denies melena, reports nausea, reports vomiting. GENITOURINARY FEMALE: Historian denies dysuria, denies frequency, denies , denies urgency. missed hemodialysis Thursday. due today. MUSCULOSKELETAL: Historian denies arthralgias, denies back pain, denies fall, denies injury, denies joint redness, denies joint stiffness, denies joint swelling. SKIN: Historian denies rash, denies skin changes, denies skin lesions. NEUROLOGIC: Historian denies confusion, denies dizziness, denies focal weakness, denies paralysis, denies paresthesias, denies sensory changes, denies vertigo. HEMO/LYMPHATIC: Historian denies abnormal blood clotting, denies easy bruising. ALLERGIC/IMMUNOLOGIC: Historian denies environmental allergies, reports frequent infections, denies hives. PSYCHIATRIC: Historian denies alcohol abuse, reports anxiety. &a-1R&a+25V*p+0X*w6960H*c202B*c15G*c2P*p-0X&a-25V&a+1R Name: Belem Kennedy : 1985 F30 MedRec: [id number] AcctNum: [id number] Prepared: ThuJul 30, 2016 11:04 by Interface Page [address] [facility] EMERGENCY RECORD PAST MEDICAL HISTORY MEDICAL HISTORY: Flu vaccine up to date, Tetanus not up to date, Pneumococcal vaccine not up to date, Notes: HEART MURMUR, Past medical history includes renal disease, end stage renal disease. (03:33 KSPL) FEMALE SURGICAL HISTORY: DIALYSIS FISTULA RIGHT UPPER ARM, LEFT UPPER ARM (NOT IN USE), RIGHT OVARY REMOVED, HEART SURGERY A BABY, RIGHT HIP SURGERY,. (03:33 KSPL) SOCIAL HISTORY: Patient denies alcohol use, Patient denies drug use, Patient has no smoking history. (03:33 KSPL) NOTES: I have reviewed the nursing documentation regarding PMHX, social hx, family hx, and surgical history as well as vitals and triage notes and agree. (05:39 DHAM) PHYSICAL EXAM (04:03 DHAM) CONSTITUTIONAL: Vital signs reviewed, Patient afebrile, Pulse, tachycardic, Blood pressure, hypertensive, Respiratory rate, increased, Patient appears non toxic, Patient appears in pain, in mild pain distress, Patient alert and oriented to person, place and time, very talkative and does not appear in pain until examined. HEAD: Head exam included findings of head atraumatic, normocephalic. EYES: Eye exam included findings of, right eyelid red, discharge from right eye looks slightly green and lid margins appear erythematous., Pupils equally round and reactive to light, Extraocular muscles intact, Conjunctiva normal, Sclera normal, Eye exam included findings of anterior chamber clear. ENT: Ear exam normal, Nose exam normal, Pharynx exam normal, Uvula exam normal, Tonsil exam normal, Mouth exam normal, mucous membranes moist, no drooling, no lesions, no lacerations, no tongue elevation. NECK: Neck exam included findings of normal range of motion, Trachea midline, no carotid bruits, no meningeal signs, no cervical adenopathy, no tenderness. RESPIRATORY CHEST: Respiratory exam included findings of no respiratory distress, Breath sounds clear, No wheezing, No rales, No rhonchi. CARDIOVASCULAR: Cardiovascular exam included findings of heart rate regular rate and rhythm, Heart sounds with, systolic murmur present, grade 2/6, right upper arm av dialysis shunt. ABDOMEN FEMALE: Abdominal exam included findings of abdomen tender, to the right lower quadrant, severe intensity, Bowel sounds, hyperactive, Liver normal, Spleen normal, no distension, no pulsatile masses, Peritoneal signs present, no rigidity, guarding present, no rebound, guarding in the right lower quad only. abdomen is really quite soft otherwise. &a-1R&a+25V*p+0X*l1941L*c202B*c15G*c2P*p-0X&a-25V&a+1R Name: Belem Kennedy : 1985 F30 MedRec: [id number] AcctNum: [id number] Prepared: ThuJul 30, 2016 11:04 by Interface Page [address] [facility] EMERGENCY RECORD GENITOURINARY FEMALE: External genitalia normal. BACK: Back exam included findings of normal inspection, range of motion normal, no tenderness. UPPER EXTREMITY: Upper extremity exam normal. LOWER EXTREMITY: Lower extremity exam normal. NEURO: [place] coma scale 15, Neuro exam findings include patient oriented to person, place and time, Speech normal, Gait normal, Memory normal, Cranial nerves intact, no focal motor deficits, no focal sensory deficits. SKIN: Skin exam included findings of skin warm, dry, and normal in color, no rash. LYMPHATIC: Lymphatic exam normal. PSYCHIATRIC: Psychiatric exam included findings of patient oriented to person place and time, speech is high pitched and pressured. LAB INTERPRETATION (05:34 DHAM) INTERPRETATION: CBC abnormal, White blood cell count elevated, Hemoglobin decreased, Chemistry abnormal, Potassium elevated, BUN elevated, Creatinine elevated, Bicarbonate decreased, Liver functions normal, Lipase normal, Urinalysis normal. EVENTS TRANSFER: Triage to Emergency Triage. (ThuJul 30, 2016 03:27 KSPL) Emergency Triage to Emergency Room -01. (03:28 KSPL) Removed from Emergency Emergency Room -01. (06:13 KSPL) RADIOLOGYINTERPRETATION (05:32 DHAM) CHEST: Films of the chest show, interstitial infiltrate, no pneumothorax, no hemothorax, no pleural effusion, moderate congestive heart failure, Other findings: moderate interstitial pulm edema with cuffing, cephalization and gustavo B lines. EKG INTERPRETATION (04:09 DHAM) 12 LEAD EKG INTERPRETATION: 12 lead EKG interpreted by Emergency Department Physician at time of study, 12 lead EKG shows, sinus tachycardia, Rate (beats per minute): 106, with no ectopics, Compared with previous EKG from, 11/26/2015 04:11, Similar to old EKG, Conduction normal, ST segments normal, T waves normal, [place], right. O2SAT INTERPRETATION (04:09 DHAM) O2SAT: Single pulse oximetry, Oxygen saturation 93%, on room air, Oxygen saturation interpretation: Low normal, No intervention required. DOCTOR NOTES &a-1R&a+25V*p+0X*x4647Q*c202B*c15G*c2P*p-0X&a-25V&a+1R Name: Belem Kennedy : 1985 F30 MedRec: [id number] AcctNum: [id number] Prepared: ThuJul 30, 2016 11:04 by Interface Page [address] [facility] EMERGENCY RECORD TEXT: pain much improved p 6mg morphine IV as of 4. (04:13 DHAM) Pts K+ is 6.9 and her wbc is 18K. Her EKG does not demonstrate changes of hyperkalemia. Her ct abd is pending at this time. Her cxr is consistent with interstitial pulm edema but lung exam without crackles. We have started albuterol 10mg via neb. Pt was discussed with and accepted by Dr. Peguero at [facility] at 0457. She does appear stable for transfer as she will need dialysis this morning. I have encouraged her not to miss dialysis. I have obtained BC x 2 sets and started Unasyn due to the leukocytosis. (05:12 DHAM) PROBLEM LIST No recorded problems DIAGNOSIS (05:32 DHAM) FINAL: PRIMARY: Hyperkalemia, ADDITIONAL: FLUID OVERLOAD UNSPECIFIED, leukocytosis, RIGHT LOWER QUADRANT PAIN. DISPOSITION PATIENT: Disposition Type: Transfer, Disposition: Transfer to [facility]. (05:32 DHAM) Patient left the department. (06:13 KSPL) PRESCRIPTION No recorded prescriptions IMAGING *EKG: Image captured from scanner. (04:14 KSPL) *MEMORANDUM OF TRANSFER: Image captured from scanner. (05:30 KSPL) PHYSICIAN CERTIFICATION STATEMENT: Image captured from scanner. (05:31 KSPL) CONSENTS: Image captured from scanner. (05:31 KSPL) MONITOR STRIPS: Image captured from scanner. (05:31 KSPL) *SUPPLY CHARGE SHEET: Image captured from scanner. (05:50 MVIL) CT REPORT: Image captured from scanner. (05:59 KSPL) Page 2 added. Image captured from scanner. (05:59 KSPL) ADMIN DIGITAL SIGNATURE: MD Choi Darren. (10:49 DHAM) RESULTS (04:46 DHAM) MICROBIOLOGY: Influenza A&B Ag Screen: [id number] Collection DT: ThuJul 30, 2016 04:31, See comment below , @ ER ROOM#: ER-01 Source: Nasal swab Spec Desc: , Influenza A Antigen: NEGATIVE for the , presence of , INFLUENZA A Antigen , &a-1R&a+25V*p+0X*l4563M*c202B*c15G*c2P*p-0X&a-25V&a+1R Name: Belem Kennedy : 1985 F30 MedRec: [id number] AcctNum: [id number] Prepared: ThuJul 30, 2016 11:04 by Interface Page [address] [facility] EMERGENCY RECORD Influenza B Antigen: NEGATIVE for the , presence of , INFLUENZA B Antigen , The rapid Flu A&B test can distinguish between influenza A , Influenza A&B Ag Screen See comment below , and B viruses, but it does not differentiate influenza , Influenza A&B Ag Screen See comment below , subtypes. , Influenza A&B Ag Screen See comment below , Influenza A&B Ag Screen See comment below , Influenza A&B Ag Screen See comment below , Influenza A&B Ag Screen See comment below , characteristics of this device with human specimens infected , Influenza A&B Ag Screen See comment below , with the 2008 H1N1 influenza virus have not been , Influenza A&B Ag Screen See comment below , established. For example: this test cannot distinguish , Influenza A&B Ag Screen See comment below , influenza infections caused by novel H1N1 influenza A , Influenza A&B Ag Screen See comment below , viruses versus seasonal influenza A viruses. , Influenza A&B Ag Screen See comment below , , Influenza A&B Ag Screen See comment below , A negative result does not exclude influenza virus , Influenza A&B Ag Screen See comment below , infection; therefore, if more conclusive testing is desired, , Influenza A&B Ag Screen See comment below , follow up confirmatory testing is warranted., Influenza A&B Ag Screen See comment below . LABORATORY: Lipase Collection DT: ThuJul 30, 2016 04:03, Lipase 25 U/L, Range (8-78). Comprehensive Metabolic Panel Collection DT: ThuJul 30, 2016 04:03, Critical Call Chemistry KAUR AT 0426 , Refer to Critical Value designated by an *L or *H , Sodium 140 mmol/L, Range (136-145), *Potassium 6.9 - *H mmol/L, Range (3.5-5.1), Critical value!, Chloride 103 mmol/L, Range (98-107), *Carbon Dioxide 16 - L mmol/L, Range (22-29), *Anion Gap 28 - H mmol/L, Range (10-20), *BUN (Urea Nitrogen) 88 - H mg/dL, Range (7.0-18.7), *Creatinine 10.74 - H mg/dL, Range (0.6-1.1), Estimated GFR-MDRD 4 , Reference Range for Estimated GFR: Greater than 90, mL/min/1.73 m2 NOTE: The MDRD equation has not been validated for use, with the elderly (over 70 years of age), women, patients with, serious comorbid condition or persons with extremes of body size, muscle, mass, or nutritional status. , Glucose 83 mg/dL, Range (70-105), Calcium 8.6 mg/dL, Range (7.8-10.44), &a-1R&a+25V*p+0X*z4812J*c202B*c15G*c2P*p-0X&a-25V&a+1R Name: Belem Kennedy : 1985 F30 MedRec: [id number] AcctNum: [id number] Prepared: ThuJul 30, 2016 11:04 by Interface Page [address] [facility] EMERGENCY RECORD Bilirubin, Total 0.4 mg/dL, Range (0.2-1.2), Protein, Total 7.6 g/dL, Range (6.0-8.3), NOTE: Plasma values are generally 0.3 to 0.5 g/dL higher than serum values, due to the presence of fibrinogen. , Albumin 4.2 g/dL, Range (3.5-5.0), Globulin 3.4 g/dL, Range (2.4-3.5), Alb/Glob Ratio 1.2 g/dL, Range (1.2-2.2), *Alkaline Phosphatase 256 - H U/L, Range (40-150), AST (SGOT) 14 U/L, Range (5-34), ALT (SGPT) 10 U/L, Range (0-55). Urine Microscopic Collection DT: ThuJul 30, 2016 04:15, *RBC/HPF 7-10 - H HPF, Range (0-3), WBC/HPF None Seen HPF, Range (0-3), Squamous Epithelial 0-3 HPF, Range (0-3), Bacteria/HPF Rare-Few HPF, Range (None Seen). Urinalysis w/ Rflx Microscopic Collection DT: ThuJul 30, 2016 04:15, Color Yellow , Range (Yellow), Clarity Clear , Range (Clear), Specific [place], Urine 1.020 , Range (1.005-1.030), pH, Urine 8.5 , Range (5.0-9.0), Leukocyte Negative , Range (Negative), Nitrite Negative , Range (Negative), *Protein, Urine (Dipstick) > or equal to 300 - mg/dL, * H , Range (Neg-Trace), *Glucose, Urine (Dipstick) 100 - H mg/dL, Range (Negative), Ketone, Urine Negative mg/dL, Range (Negative), Urobilinogen 0.2 mg/dL, Range (0.2-1.0), Bilirubin Negative , Range (Negative), *Blood, Urine Moderate - H , Range (Negative). Test, Serum (BHCG) Collection DT: ThuJul 30, 2016 04:03, BHCG - Serum NEGATIVE , Range (NEGATIVE), Method of sensitivity- Indeterminant: results should be repeated, after 48 hours. Positive: results may be detected as early as 4-5 days before a first missed menses. Elimination of BHCG-, Elimination following first trimester D&C: 29-44 Days , Elimination following term : 8-24 Days . CBC with Differential Collection DT: ThuJul 30, 2016 04:03, *White Blood Cell (WBC) Count 18.0 - H thou/uL, Range (4.8-10.8), *Red Blood Cell (RBC) Count 3.41 - L mill/uL, Range (4.20-5.40), *Hemoglobin 10.6 - L g/dL, Range (12.0-16.0), *Hematocrit 32.7 - L %, Range (36.0-47.0), Mean Corpuscular Volume 96.0 fl, Range (81.0-99.0), *Mean Corpuscular Hemoglobin 31.2 - H pg, Range (27.0-31.0), Mean Corpuscular HGB CONC 32.5 g/dL, Range (32.0-36.0), &a-1R&a+25V*p+0X*n3053G*c202B*c15G*c2P*p-0X&a-25V&a+1R Name: Belem Kennedy : 1985 F30 MedRec: [id number] AcctNum: [id number] Prepared: ThuJul 30, 2016 11:04 by Interface Page [address] [facility] EMERGENCY RECORD *RBC Distribution Width 15.4 - H %, Range (11.5-14.5), Platelet Count 243 thou/uL, Range (130-400), *Mean Platelet Volume 7.1 - L fL, Range (7.4-10.4), *%Neutrophils 81.4 - H %, Range (42.0-75.0), *%Lymphocytes 8.2 - L %, Range (21.0-51.0), %Monocytes 7.0 %, Range (0.0-10.0), %Eosinophils 2.6 %, Range (0.0-10.0), %Basophils 0.8 %, Range (0.0-1.0), *#Neutrophils 14.7 - H thou/uL, Range (1.40-6.50), #Lymphocytes 1.5 thou/uL, Range (1.20-3.40), *#Monocytes 1.3 - H thou/uL, Range (0.11-0.59), #Eosinphils 0.5 thou/uL, Range (0.0-0.7), #Basophils 0.1 thou/uL, Range (0.0-0.2). Fang: DHAM=MD Steph, Gualberto KSPL=EDEN Velazquez, Marley MVIL=EDEN Brumfield, Alivia &a-1R&a+25V*p+0X*u1202Z*c202B*c15G*c2P*p-0X&a-25V&a+1R Name: Belem Kennedy Corey : 1985 F30 MedRec: [id number] AcctNum: [id number] Prepared: ThuJul 30, 2016 11:04 by Interface Page 18 of 18 pMD MTDD
[2016-07-30] MEDS ORDERED: Iopamidol 370 76% 100 ML VIAL ONE (09:00)
--- NOTE | 2016-07-30 11:22 | RAD ---
PORTABLE CHEST 07/30/2016 An AP portable film at 0431 hours is compared with a 07/09/2016 study from [facility]. The heart is moderately enlarged. Diffuse pulmonary edema is present, and some pleural fluid is sug gested. The findings suggest congestive heart failure or other causes of the fluid imbalance. IMPRESSION: Cardiomegaly and pulmonary edema. POS: HOME
--- NOTE | 2016-07-30 11:48 | CT ---
PRELIMINARY REPORT/[facility]/EMERGENCY AFTER HOURS PROCEDURE: EXAM: CT Abdomen and Pelvis With Intravenous Contrast. CLINICAL HISTORY: 30 years old, female; Pain; Abdominal pain; Localized; Right lower quadrant (rlq); Patient HX: Pt pr esents to the er for abdominal pain; Rlq pain, diarrhea x days, dry heaving. ; Additional info: i v contrast only per er md TECHNIQUE: Axial computed tomography images of the abdomen and pelvis with intravenous contrast. Coronal and sagittal reformatted images were created and reviewed. CONTRAST: 94 mL of ISOVUE 370 administered intravenously. COMPARISON: Report from CT - ABD/PEL W/O 5X5 12/08/2015 11:58:27 PM FINDINGS: Lower thorax: Moderate interstitial opacities in both lung bases likely represents moderate pulmonar y edema. Moderate bilateral pleural effusions with associated atelectasis are seen. ABDOMEN: Liver: Subcentimeter hypodensity in segment IV adjacent to the falciform ligament likely represents focal fat. Gallbladder and bile ducts: Unremarkable. No calcified stones. No ductal dilation. Pancreas: Mild fluid is seen around the head of the pancreas. No mass. No ductal dilation. Spleen: Unremarkable. No splenomegaly. Adrenals: Unremarkable. No mass. Kidneys and ureters: A transplant right kidney is noted. Atrophic right kidney with cortical calcifi cations are noted. The [place] kidneys are absent. Cystic structure measuring 2 cm is noted in the ex pected location of the left kidney. No hydronephrosis. Stomach and bowel: Unremarkable. No obstruction. No mucosal thickening. Appendix: No findings to suggest acute appendicitis. PELVIS: Bladder: Moderate air in the urinary bladder likely due to instrumentation. Infection is not exclude d. Reproductive: Subcentimeter fat containing dermoid is noted in the right ovary. A bicornuate or sept ate uterus may be present. ABDOMEN and PELVIS: Intraperitoneal space: Mild free fluid is seen in the pelvis. Mild free fluid is seen around the sec ond portion of the duodenum. Mild free fluid is seen around the spleen. Mild free fluid is noted in both paracolic gutters. No free air. Bones/joints: Sclerosis of the superior and inferior endplates of the thoracic and lumbar vertebrae likely represent renal osteodystrophy. Lytic areas involving the lumbar vertebrae L2 and L4 may repr esent brown tumors. Soft tissues: Several surgical clips are noted in the right inguinal region. Vasculature: Unremarkable. No abdominal aortic aneurysm. Lymph nodes: Unremarkable. IMPRESSION: 1. Mild fluid around the pancreas and the second portion of the duodenum with mild duodenal wall thi ckening may represent acute pancreatitis/duodenitis. Moderate free fluid in the pelvis and both paracolic gutters is likely reactive. Correlate with lab values. 2. Moderate interstitial opacities in both lung bases likely represents moderate pulmonary edema. Moderate bilateral pleural effusions with associated atelectasis. 3. [place] kidneys are absent. 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 4. Moderate air in the urinary bladder likely due to instrumentation. Infection is not excluded. 5. Subcentimeter fat containing dermoid in the right ovary. 6. Bicornuate or septate uterus may be present. An MRI can be obtained to distinguish between the tw o. 7. Sclerosis of the superior and inferior endplates of the thoracic and lumbar vertebrae likely repr esent renal osteodystrophy. Thank you for allowing us to participate in the care of your patient. Dictated and Authenticated by: Khushbu Navarro MD 07/30/2016 5:52 AM Central Time ([place] \T\ [place]) FINAL REPORT CT ABDOMEN AND PELVIS WITH CONTRAST: Date: 07-30-[address] of the abdomen and pelvis was done using IV contrast only by request. Axial slices were a cquired then coronal and sagittal reconstructions were done. Comparison: 12-09-15 FINDINGS: Moderate bilateral pleural effusions are present. Nodular opacities in the lower lobes is probably secondary to pulmonary edema. The liver appears to be passively congested. No hepatic masses or di lated ducts were seen. There is a little bit of periportal edema. The gallbladder is larger than i t usually is, measuring about 8.1 cm in length. Its wall is not thick and no calcifications were se en within it. The spleen is normal in size. The pancreas is unremarkable. No adrenal masses were seen. The kidneys are absent in the upper abdomen. There is a 2 cm cystic area in the left renal b ed which may be a residual cyst. The aorta shows no dilation. Pockets of free fluid are seen throughout the abdomen and pelvis and in the pericolic gutters. No f ocal abscess was appreciated. No free air was seen. There was some moderate dilatation of the colo n to a level of nearly 5 cm in width. I am not sure I see a true transition point in looking at the prior scan her colon does often run on the big side. CT of the pelvis suggests the possibility of a bicornuate uterus. She probably has a small dermoid in her right ovary and this has been mentioned before. There may be a small cyst in the left ovary as well. Some free fluid is seen in the cul-de-sac. A kidney is seen in the pelvis on the right wh ich is either a transplanted kidney or an ectopic kidney that has calcified margins. There is some endplate sclerosis of the lumbar spine which could related to renal osteodystrophy. Some lucencies of L2 and L4 were present before and have not changed. IMPRESSION: 1. Bilateral pleural effusions with what is presumed to be pulmonary edema. 2. Scattered pockets of fluid throughout the abdomen, particularly around the pancreas, duodenum, a nd splenic areas, but also tracking into the paracolic gutters and pelvis. The patient should be ch ecked for pancreatitis. 3. [place] kidneys absent. 2 cm cyst in the left renal bed, possibly a residual renal cyst. Atroph y transplant or ectopic kidney in the right pelvis with cortical nephrocalcinosis. 4. Probable subcentimeter fat containing dermoid in the right ovary. The patient also appears to h ave a bicornuate or septate uterus. 5. Other findings as listed above. 6. Not mentioned above but present is air in the urinary bladder which I presume to be due to instr umentation. If she has not been instrumented, then infection is a consideration. Report in agreement with preliminary reading by FABIO. POS: HOME
== END 2016-07-30 06:13 | disposition short-term general hospital (02) ==
LOC: BURERS 03:21
DX: E87.5 Hyperkalemia (principal); E87.70 Fluid overload, unspecified; D72.829 Elevated white blood cell count, unspecified; N18.6 End stage renal disease
CPT/HCPCS: 36415; 51701; 71010; 74177; 80053; 81003; 81015; 83690; 84703; 85025; 87040; 93005; 94644; 94760; 96374; 96375; 96376; A4353; J0295; J1200; J1815; J1940; J2270; J2405; J7050

== ENCOUNTER 2016-08-07 17:58 | Emergency (ER) | payer MEDICARE, MEDICAID ==
[2016-08-07 18:29] LABS: Bilirubin Negative (Negative); Blood, Urine Large (Negative); Glucose, Urine (Dipstick) Negative (Negative); Ketone, Urine 40 mg/dL (Negative); Nitrite Negative (Negative); Protein, Urine (Dipstick) > or equal to 300 mg/dL (Neg-Trace); Urobilinogen 0.2 mg/dL (0.2-1.0)
[2016-08-07 18:32] LABS: #Basophils 0.2 thou/uL (0.0-0.2); #Eosinphils 0.3 thou/uL (0.0-0.7); #Lymphocytes 1.6 thou/uL (1.20-3.40); #Monocytes 1.4 thou/uL (0.11-0.59); #Neutrophils 14.1 thou/uL (1.40-6.50); %Basophils 1.2 % (0.0-1.0); %Eosinophils 1.7 % (0.0-10.0); %Monocytes 7.8 % (0.0-10.0); Hematocrit 34.4 % (36.0-47.0); Mean Platelet Volume 7.1 fL (7.4-10.4); White Blood Cell (WBC) Count 17.6 thou/uL (4.8-10.8)
[2016-08-07 18:43] LABS: RBC/HPF 21-50 HPF (0-3); Renal Epithelial None Seen HPF (0-3); Squamous Epithelial 21-50 HPF (0-3); Transitional Epithelial NONE SEEN HPF (0-3)
[2016-08-07 18:44] LABS: Bacteria/HPF 1+ HPF (None Seen); Hyaline Casts/LPF NONE SEEN LPF (0-3 Hyaline); Oval Fat Bodies/HPF None Seen HPF (None Seen); Sperm/HPF None Seen HPF (None Seen); Trichomonas/HPF None Seen HPF (None Seen); Yeast-All Forms None Seen HPF (None Seen)
[2016-08-07 18:46] LABS: ALT (SGPT) 11 U/L (0-55); AST (SGOT) 13 U/L (5-34); Alkaline Phosphatase 211 U/L (40-150); Anion Gap 31 mmol/L (10-20); BUN (Urea Nitrogen) 47 mg/dL (7.0-18.7); Bilirubin, Total 0.6 mg/dL (0.2-1.2); Calc. Creatinine Clearance 0 mL/min (70-130); Calcium 8.9 mg/dL (7.8-10.44); Carbon Dioxide 16 mmol/L (22-29); Chloride 98 mmol/L (98-107); Estimated GFR-MDRD 4; Globulin 3.4 g/dL (2.4-3.5); Protein, Total 7.7 g/dL (6.0-8.3)
[2016-08-07 18:48] LABS: Acetaminophen Less than 3.0 mcg/mL (10.0-30.0); Methadone Not Detected (NotDetected); Methamphetamine Not Detected (NotDetected); Salicylate Less than 5.0 mg/dL (15.0-30.0)
--- NOTE | 2016-08-08 00:46 | ERRECORD ---
[facility] EMERGENCY RECORD HPI PSYCHIATRIC CHIEF COMPLAINT: Patient presents for evaluation of agitation, Patient presents for evaluation of bizarre behavior, Patient presents for evaluation of homicidal ideation, Patient presents for evaluation of suicidal ideation, Patient presents for evaluation of Patient called [facility] today stating she was incrisis, SO screener evaluated her and referred her for medical clearance as she states she took 5 tramadol and 4 fluxetine at approx 0300. (19:15 JPIP) HISTORIAN: History provided by patient, Additional history obtained from EMS. (19:15 JPIP) LOCATION: No localizing symptoms. (19:15 JPIP) SEVERITY: Currently symptoms are moderate. (19:20 JPIP) TIME COURSE: Sudden onset of symptoms, Date and time of onset was 0300 ingestion, There has been no change in the patient's symptoms over time. (19:15 JPIP) ASSOCIATED WITH: No associated alcohol use, Associated with anxiety, Associated with homicidal ideations, No associated loss of appetite, Associated with overdose, Associated with suicide attempt, Associated with suicidal thoughts, wants to harm her neighbor for trying to take her cats. (19:15 JPIP) EXACERBATED BY: Patient's condition exacerbated by Patietn mother was admitted to [facility] for mental health issues today. (19:15 JPIP) RELIEVED BY: Patient's condition relieved by nothing. (19:15 JPIP) RISK FACTORS: Suicide risk factors:, poor coping skills, poor insight. (19:15 JPIP) ROS (19:19 JPIP) CONSTITUTIONAL: Historian denies lethargy, denies malaise. EYES: Historian denies vision changes. CARDIOVASCULAR: Historian denies chest pain, denies palpitations. RESPIRATORY: Historian denies cough, denies shortness of breath. GI: Historian denies abdominal pain. SKIN: Historian denies rash, denies skin changes, denies skin lesions. NEUROLOGIC: Historian denies headache, denies lethargy, denies mental status changes. NOTES: All systems reviewed, negative except as described above., Patient was recently discharged from [facility] for pancreatitis. She is on ABX for parotitis, she no longer has abdominal pain. PAST MEDICAL HISTORY MEDICAL HISTORY: Flu vaccine up to date, Tetanus not up to date, Pneumococcal vaccine not up to date, Notes: HEART MURMUR, Past medical history includes renal disease, end stage renal disease. (18:03 KMOR) Past medical history includes cardiac history, "IRREGULAR HEART BEATS" GRAFT PLACED 01-29-15. 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 ESRD DILALYSIS M,W,F. Notes: Sharon's syndome, Past medical history includes renal disease, end stage renal disease. Possible heart murmur. (18:28 JPIP) FEMALE SURGICAL HISTORY: DIALYSIS FISTULA RIGHT UPPER ARM, LEFT UPPER ARM (NOT IN USE), RIGHT OVARY REMOVED, HEART SURGERY A BABY, RIGHT HIP SURGERY,. (18:03 KMOR) PDA AT 6 MONTHS, RIGHT SIDED ABD SX OVARY REMOVED, Surgical history of orthopedic surgery, RIGHT HIP, DIAYLSIS CATH, SHUNT AN GRAFT TO LEFT ARM. Peritoneal dialysis catheter (since removed). DIALYSIS GRAFT TO R ARM 01-29-15. AV fistula placement and removal of PD catheter. Oophorectomy. (18:28 JPIP) PSYCHIATRIC HISTORY: Psychiatric history includes, anxiety, depression. Verified 07/07/16. (18:28 JPIP) SOCIAL HISTORY: Patient denies alcohol use, Patient denies drug use, Patient has no smoking history. (18:03 KMOR) Patient denies alcohol use, Patient denies drug use, Patient has no smoking history. Verified 07/07/16. (18:28 JPIP) FAMILY HISTORY: Family history is non-contributory to this case. DIALYSIS TUES, THURS, SAT, AT [address] [facility] ON [address] Family history is non-contributory to this case (UPDATED 07/24/12). pancreatitis, Family history includes diabetes, Family history includes malignancy, father, bone CA. (18:28 JPIP) NOTES: Nursing records reviewed, Old chart reviewed, Medication list reviewed. (19:27 JPIP) KNOWN ALLERGIES baclofen: Reaction: Hives, Source: Patient Claritin: Reaction: Anaphylaxis, Source: Patient Flexeril: Reaction: Hives, Severity: Moderate, Source: Patient Reglan vancoMYCIN (bulk): Reaction: Anaphylaxis, Severity: Severe, Source: Patient CURRENT MEDICATIONS Renvela: TABLET : Strength - 800 mg : ORAL Patient Dose: 800 mg Oral 3 times a day. (18:18 KMOR) FLUoxetine: CAPSULE : Strength - 10 mg : ORAL Patient Dose: 10 mg Oral once a day (at bedtime). (18:21 KMOR) traMADol: TABLET : Strength - 50 mg : ORAL Patient Dose: 50 mg Oral every 6 hours PRN. (18:22 KMOR) VITAL SIGNS (18:04 KMOR) VITAL SIGNS: BP: 137/89, Pulse: 99, Resp: 16, Temp: 98.3 (Oral), &a-1R&a+25V*p+0X*[id number]*c202B*c15G*c2P*p-0X&a-25V&a+1R Name: Belem Kennedy : 1985 F30 MedRec: [id number] AcctNum: [id number] Prepared: ThuAug 08, 2016 00:42 by Interface Page 2 of 4 pMD [facility] EMERGENCY RECORD Pain: 7, O2 sat: 100 on Room Air, Time: 08/07/2016 18:04. PHYSICAL EXAM (19:24 JPIP) CONSTITUTIONAL: Vital Signs Reviewed, Patient afebrile, Pulse normal, Blood pressure normal, Respiratory rate normal, Normal pulse oximetry, Patient appears pain free, Nursing notes reviewed. HEAD: Head exam included findings of head atraumatic, normocephalic, dysmorphic facial features. EYES: Eye exam included findings of eyelids normal to inspection, Conjunctiva normal, Sclera normal, no periorbital ecchymosis, no periorbital edema, no periorbital erythema. ENT: Ear exam normal, external ear normal, tympanic membranes normal, no foreign body, no drainage, no bleeding, Pharynx exam normal, not injected, no swelling, symmetrical, Uvula exam normal, midline, no edema, enlarged parotids. NECK: Neck exam included findings of normal range of motion, Trachea midline, Cervical adenopathy. RESPIRATORY CHEST: Respiratory exam included findings of no respiratory distress, Breath sounds clear, No wheezing, No rales, No rhonchi, Breath sounds not absent, Breath sounds not diminished. CARDIOVASCULAR: Cardiovascular exam included findings of heart rate regular rate and rhythm, Heart sounds with, gallop present, click present, systolic murmur present, grade 4/6. ABDOMEN FEMALE: Abdominal exam included findings of abdomen nontender, Liver normal, Spleen normal, no distension, no mass, no pulsatile masses, no peritoneal signs, no rigidity, no guarding, no rebound. BACK: no costovertebral angle tenderness. UPPER EXTREMITY: Upper extremity exam included findings of inspection normal, Range of motion normal. NEURO: Neuro exam findings include patient oriented to person, place and time, Bladimir coma scale 15, no focal motor deficits. SKIN: Skin exam included findings of skin warm, dry, and normal in color, old echymotic sites on upper extremities. per patient IV sites. LYMPHATIC: Lymphatic exam included findings of cervical adenopathy, multiple nodes, swollen. PSYCHIATRIC: Psychiatric exam included findings of patient oriented to person place and time, Affect, colorful, anxious, Judgment poor, Insight poor, Suicidal ideations present, has a plan, OD, "cut my wrists" "cut my throat". DOCTOR NOTES (20:43 JPIP) TEXT: [facility] has screened patient. per screener patient has been accepted to [facility] in [place]. After contact with [facility] Patient has not been accepted by their facility. Patient was to go directly to their facility for medical clearance at their facility. At this point no Doc to Doc discussions. We must send the &a-1R&a+25V*p+0X*[id number]*c202B*c15G*c2P*p-0X&a-25V&a+1R Name: Belem Kennedy : 1985 F30 MedRec: [id number] AcctNum: [id number] Prepared: ThuAug 08, 2016 00:42 by Interface Page 3 of 4 pMD [facility] EMERGENCY RECORD chart and all labs to [facility] to review the documentation and decide if they will accept Ms Kennedy. Awaiting their review at this time. PROBLEM LIST No recorded problems DIAGNOSIS (20:43 JPIP) FINAL: PRIMARY: Suicidal ideation, ADDITIONAL: Acute cystitis with hematuria, [place]'s syndrome, overdose, parotitis, Renal failure. PRESCRIPTION No recorded prescriptions DISPOSITION PATIENT: Disposition Type: Transfer, Disposition: Other Hospital - Psychiatric, Disposition Transport: Police, Condition: Good. (20:34 JPIP) Patient left the department. (ThuAug 08, 2016 00:40 MAURIZIO) Fang: VIVIANE=DO Christy Joseph KMOR=EDEN Pope, Leonor STEVEN=EDEN Rodrigues, Li &a-1R&a+25V*p+0X*[id number]*c202B*c15G*c2P*p-0X&a-25V&a+1R Name: Natalyalizzie Belem M : 1985 F30 MedRec: [id number] AcctNum: [id number] Prepared: ThuAug 08, 2016 00:42 by Interface Page 4 of 4 pMD MTDD
--- NOTE | 2016-08-08 00:56 | PICIS ---
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 Detected , Range (NotDetected), Benzodiazepine Screen Not Detected , Range (NotDetected), Tricyclic Screen Not Detected , Range (NotDetected), Methadone Not Detected , Range (NotDetected), Barbiturates Screen Not Detected , Range (NotDetected), Oxycodone Screen Not Detected , Range (NotDetected), Propoxyphene Screen Not Detected , Range (NotDetected), Drug Screen Cutoff , Range (), The [employer] Profile-V Panel for Qualitative Drugs of Abuse assays are for, presumptive screening testing only. The drug class and detection limits, are as follows: Drug Class Detection Limit Amphetamine , 500 ng/mL* Barbiturates 200 ng/mL , Benzodiazepines 150 ng/mL* Cocaine 150 ng/mL*, Methamphetamine 500 ng/mL* Methadone 200, ng/mL* Opiates 100 ng/mL* &a-1R&a+25V*p+0X*[id number]*c202B*c15G*c2P*p-0X&a-25V&a+1R Name: Belem Kennedy : 1985 F30 MedRec: [id number] AcctNum: [id number] Prepared: ThuAug 08, 2016 00:48 by Interface Page 10 of 12 pMD [facility] Oxycodone , 100 ng/mL PCP 25 ng/mL Propoxyphene , 300 ng/mL Tricyclic Antidepressants 300 ng/mL Cannabinoids (THC) , 50 ng/mL Tests which yield a presumptive positive result must be , tested using a more specific alternate chemical method in order to obtain, a confirmed analytical result. Additional confirmation and identification, may be ordered on a routine basis, if desired. Presumptive positive urines, are held for two weeks. . (19:14 [facility]) Alcohol Collection DT: [facility] Aug 07, 2016 18:23, Alcohol Less than 10 mg/dL, Range (Less than 10), The pharmacological response to blood alcohol levels may vary from, individual to individual. Negative: Less than 10, mg/dL Toxic: 50 - 100 mg/dL , Depression of [employer]ER: Greater than 100 mg/dL , Fatalities reported: Greater than 400 mg/dL . (19:14 [facility]) Comprehensive Metabolic Panel Collection DT: [facility] Aug 07, 2016 18:23, Sodium 140 mmol/L, Range (136-145), Potassium 4.5 mmol/L, Range (3.5-5.1), Chloride 98 mmol/L, Range (98-107), *Carbon Dioxide 16 - L mmol/L, Range (22-29), *Anion Gap 31 - H mmol/L, Range (10-20), *BUN (Urea Nitrogen) 47 - H mg/dL, Range (7.0-18.7), *Creatinine 10.21 - H mg/dL, Range (0.6-1.1), Estimated GFR-MDRD 4 , Reference Range for Estimated GFR: Greater than 90, mL/min/1.73 m2 NOTE: The MDRD equation has not been validated for use, with the elderly (over 70 years of age), women, patients with, serious comorbid condition or persons with extremes of body size, muscle, mass, or nutritional status. , Glucose 98 mg/dL, Range (70-105), Calcium 8.9 mg/dL, Range (7.8-10.44), Bilirubin, Total 0.6 mg/dL, Range (0.2-1.2), Protein, Total 7.7 g/dL, Range (6.0-8.3), NOTE: Plasma values are generally 0.3 to 0.5 g/dL higher than serum values, due to the presence of fibrinogen. , Albumin 4.3 g/dL, Range (3.5-5.0), &a-1R&a+25V*p+0X*[id number]*c202B*c15G*c2P*p-0X&a-25V&a+1R Name: Belem Kennedy : 1985 F30 MedRec: [id number] AcctNum: [id number] Prepared: ThuAug 08, 2016 00:48 by Interface Page 11 of 12 pMD [facility] Globulin 3.4 g/dL, Range (2.4-3.5), Alb/Glob Ratio 1.3 g/dL, Range (1.2-2.2), *Alkaline Phosphatase 211 - H U/L, Range (40-150), AST (SGOT) 13 U/L, Range (5-34), ALT (SGPT) 11 U/L, Range (0-55). (19:14 [facility]) Drug Screen, Blood Collection DT: [facility] Aug 07, 2016 18:23, *Acetaminophen Less than 3.0 - L mcg/mL, Range (10.0-30.0), Therapeutic Range: 10.0 - 30.0 ug/mL Toxic Range: Possible, toxicity: 150 - 200 ug/mL Probable toxicity: Greater than 200, ug/mL *IMPORTANT TESTING INFORMATION* The half-life of NAC is 2, hours. The total NAC clearance is 5.6 hours for adults and 11 hours for, Newborns. Testing acetaminophen levels prior to a reasonable time frame, for clearance can cause falsely decreased acetaminophen levels. , Alcohol Less than 10 mg/dL, Range (Less than 10), The pharmacological response to blood alcohol levels may vary from, individual to individual. Negative: Less than 10, mg/dL Toxic: 50 - 100 mg/dL , Depression of [employer]ER: Greater than 100 mg/dL , Fatalities reported: Greater than 400 mg/dL , *Salicylate Less than 5.0 - L mg/dL, Range (15.0-30.0). (19:14 [facility]) Thyroid Stimulating Hormone Collection DT: [facility] Aug 07, 2016 18:45, Thyroid Stimulating Hormone 2.0029 uIU/mL, Range (0.35-4.94). (19:22 [facility]) Fang: VIVIANE=DO Christy Joseph KMOR=EDEN Pope, Leonor STEVEN=EDEN Rodrigues, Li &a-1R&a+25V*p+0X*i2256A*c202B*c15G*c2P*p-0X&a-25V&a+1R Name: Belem Kennedy : 1985 F30 MedRec: [id number] AcctNum: [id number] Prepared: ThuAug 08, 2016 00:48 by Interface Page 12 of 12 pMD MTDD
== END 2016-08-08 00:40 ==
LOC: BURERS 17:58
DX: T40.4X2A Poisoning by other synthetic narcotics, intentional self-harm, initial encounter (principal); T43.222A Poisoning by selective serotonin reuptake inhibitors, intentional self-harm, initial encounter; Q87.1 Congenital malformation syndromes predominantly associated with short stature; N30.01 Acute cystitis with hematuria; K11.20 Sialoadenitis, unspecified; N18.6 End stage renal disease; F41.9 Anxiety disorder, unspecified; F32.9 Major depressive disorder, single episode, unspecified; Z99.2 Dependence on renal dialysis
CPT/HCPCS: 80053; 80306; 80307; 81003; 81015; 81025; 83690; 84443; 85025; 94760